=== PATIENT | male | born 1965 | race Caucasian/White ===

== ENCOUNTER 2018-03-09 01:46 | Emergency (ER) | payer SELFPAY ==
[~2018-03-09] VITALS: Ht 172.7 cm; Wt 72.0 kg
[2018-03-09] MEDS ORDERED: LORAZEPAM 2MG/ML CPJ IV STA (01:59)
[2018-03-09] MEDS ORDERED: SODIUM CHLORIDE 0.9% 1,000 ML IV ONE (01:59)
[2018-03-09] MEDS ORDERED: ONDANSETRON HCL 4MG/2ML INJ IV STA (01:59)
[2018-03-09 02:30] LABS: BASOPHILS % 0.6 % (0.0-2.0); EOSINOPHILS % 3.4 % (0.0-5.0); HEMATOCRIT. 44.5 % (42.0-52.0); HEMOGLOBIN. 15.2 g/dL (14.0-18.0); LYMPHOCYTES % 40.5 % (20.0-50.0); MEAN CORPUSCULAR HEMOGLOBIN 31.5 pg (28.0-32.0); MEAN CORPUSCULAR VOLUME 92.3 fL (80.0-94.0); MEAN PLATELET VOLUME 8.5 fl (7.4-10.4); MONOCYTES % 9.6 % (2.0-8.0); NEUTROPHILS % 45.9 % (40.0-76.0); PLATELET 147 x1000/uL (130-400); RED BLOOD CELL COUNT 4.82 mill/uL (4.7-6.1); RED CELL DISTRIBUTION WIDTH 14.2 % (11.6-14.6)
[2018-03-09 02:32] LABS: CHLORIDE 103 mEq/L (98-107)
[2018-03-09 02:41] LABS: CREATINE KINASE 165 IU/L (39-308)
[2018-03-09 02:55] LABS: ETHANOL BLOOD 375 mg/dL
[2018-03-09 04:56] LABS: *AMPHETAMINES SCREEN URINE NEGATIVE (NEGATIVE); *BARBITURATES SCREEN URINE NEGATIVE (NEGATIVE); *BENZODIAZEPINES SCREEN URINE NEGATIVE (NEGATIVE); *COCAINE SCREEN URINE NEGATIVE (NEGATIVE); METHADONE URINE SCREEN NEGATIVE (NEGATIVE)
[2018-03-09 04:57] LABS: CANNABINOID URINE SCREEN NEGATIVE (NEGATIVE); OPIATES URINE SCREEN NEGATIVE (NEGATIVE); PHENCYCLIDINE URINE SCREEN NEGATIVE (NEGATIVE)
[2018-03-09 10:43] VITALS: BP 115/82
== END 2018-03-09 10:44 | disposition home or self-care (01) ==
LOC: ER 01:46
DX: T51.0X1A Toxic effect of ethanol, accidental (unintentional), initial encounter (principal); G93.40 Encephalopathy, unspecified; F10.20 Alcohol dependence, uncomplicated; Y92.89 Other specified places as the place of occurrence of the external cause; Y90.8 Blood alcohol level of 240 mg/100 ml or more
CPT/HCPCS: 36415; 80053; 80305; 82550; 85025; 93005; 96361; 96374; 96375; 99285; G0482; J2060; J2405; J7030

== ENCOUNTER 2022-06-13 14:08 | Emergency (ER) | payer MEDICAID ==
[~2022-06-13] VITALS: Ht 165.1 cm; Wt 69.0 kg
[2022-06-13 14:27] VITALS: BP 148/95
[2022-06-13] MEDS ORDERED: TETANUS, DIPHTHERIA, PERTUSSIS VAC/PF 0.5ML (>10YR OLD) IM ONE (16:45)
[2022-06-13] MEDS ORDERED: LIDOCAINE HCL/EPINEPHRINE 1%-EPI 1:100,000 50 ML VIAL INFIL ONE (16:45)
[2022-06-13] MEDS ORDERED: LIDOCAINE HCL/EPINEPHRINE 1%-EPI 1:100,000 20 ML VIAL INFIL NR (17:30)
[2022-06-13] MEDS ORDERED: LIDOCAINE HCL 1% 20ML VIAL (Pyxis) INJ INFIL NR (17:30)
[2022-06-13] MEDS ORDERED: BACITRACIN 15GM TUBE TOP ONE (18:15)
[2022-06-13] MEDS ORDERED: BACITRACIN ZINC OINT UDPKT TOP NR (18:30)
== END 2022-06-13 18:42 | disposition home or self-care (01) ==
LOC: ER 14:08
DX: S61.412A Laceration without foreign body of left hand, initial encounter (principal); W25.XXXA Contact with sharp glass, initial encounter; Y93.89 Activity, other specified; Y92.018 Other place in single-family (private) house as the place of occurrence of the external cause
CPT/HCPCS: 12002; 90471; 90715; 99283; J3490; Z7610

== ENCOUNTER 2023-11-23 05:32 | Emergency (ER) | payer MEDICAID, OTHER ==
[~2023-11-23] VITALS: Ht 167.6 cm; Wt 70.0 kg
[2023-11-23 05:43] VITALS: TEMP 98.2; O2SAT 99
[2023-11-23] MEDS: POVIDONE-IODINE 10% TOPICAL SOLN 240ML TOP ONE (06:00)
[2023-11-23] MEDS: LIDOCAINE HCL 1% 20ML VIAL INFIL ONE (06:00)
[2023-11-23 07:56] VITALS: BP 149/85; PULSE 64; RESP 17; O2SAT 97
== END 2023-11-23 07:59 | disposition home or self-care (01) ==
LOC: ER 05:32
DX: S01.112A Laceration without foreign body of left eyelid and periocular area, initial encounter (principal); G31.89 Other specified degenerative diseases of nervous system; Y08.89XA Assault by other specified means, initial encounter; Y93.89 Activity, other specified; Y92.89 Other specified places as the place of occurrence of the external cause; Y99.8 Other external cause status
CPT/HCPCS: 70450; 70486; 12011; 99284; J3490; Z7610 ×3